=== PATIENT | male | born 1985 | race Caucasian/White ===

== ENCOUNTER 2018-08-22 04:57 | Emergency (ER) | payer MEDICAID, OTHER ==
[2018-08-22 05:21] VITALS: RESP 18; O2SAT 98
[2018-08-22] MEDS ORDERED: Tdap Vaccine 0.5 ml Vial (10-64 yrs) IM ONE (05:29)
[2018-08-22] MEDS ORDERED: Lidocaine 2% w Epi 1:100,000 Inj IJ ONE ×2 (05:45→05:46)
[2018-08-22] MEDS ORDERED: Bacitracin Ointment 30 GM TUBE TOP ONE (06:04)
[2018-08-22] MEDS ORDERED: Tetanus/Diphtheria Toxoids 0.5 ml Syringe IM ONE (06:06)
[2018-08-22] MEDS ORDERED: Bacitracin 500 Units/gm Oint Foilpak UD ONE (06:09)
[2018-08-22 06:15] LABS: BASO % 0.6 % (0.0-2.0); EOS # 0.2 K/uL (0.0-0.7); EOS % 2.7 % (0.0-4.0); HEMOGLOBIN 14.8 g/dL (12.0-18.0); LYMPH # 1.4 K/uL (1.0-4.3); LYMPH % 19.4 % (20.0-40.0); MEAN CELL VOLUME 85.2 fL (80.0-94.0); MEAN CORPUSCULAR HEMOGLOBIN 28.9 pg (27.0-31.0); MEAN CORPUSCULAR HGB CONC 33.9 g/dL (33.0-37.0); MEAN PLATELET VOLUME 8.2 fL (7.2-11.7); MONO # 0.5 K/uL (0.0-0.8); MONO % 6.9 % (0.0-10.0); NEUT # 5.3 K/uL (1.8-7.0); NEUT % 70.4 % (50.0-75.0); NRBC % 0.1 % (0.0-2.0); RBC 5.12 Mil/uL (4.40-5.90); WHITE BLOOD COUNT 7.5 K/uL (4.8-10.8)
--- NOTE | 2018-08-22 06:22 | C.PDOC ---
History Of Present Illness 33 year old male presents to the ER stating he has been drinking tonight and fell, sustaining a laceration to the occipital area. Denies nausea, vomiting, or other injury. Chief Complaint (Nursing): Abnormal Skin Integrity History Per: Patient History/Exam Limitations: no limitations Onset/Duration Of Symptoms: Hrs Current Symptoms Are (Timing): Still Present Location Of Injury: Posterior: Head Quality Of Symptoms: Other (Laceration) Recent travel outside of the [place]: No Past Medical History Reviewed: Historical Data, Nursing Documentation, Vital Signs Vital Signs: Last Vital Signs Temp 98.3 F 08/22/18 05:12 Pulse 74 08/22/18 05:12 Resp 18 08/22/18 05:12 BP 121/76 08/22/18 05:12 Pulse Ox 98 08/22/18 05:12 - Medical History PMH: Denies: Chronic Kidney Disease Family History: States: Unknown Family Hx - Social History Hx Tobacco Use: Yes Hx Alcohol Use: Yes Hx Substance Use: Yes - Immunization History Hx Tetanus Toxoid Vaccination: No (NEEDS) Hx Influenza Vaccination: No Hx Pneumococcal Vaccination: No Review Of Systems Constitutional: Negative for: Fever, Chills Eyes: Negative for: Vision Change Cardiovascular: Negative for: Chest Pain, Palpitations Respiratory: Negative for: Cough, Shortness of Breath Gastrointestinal: Negative for: Nausea, Vomiting Skin: Positive for: Other (Laceration) Physical Exam - Physical Exam Appears: Non-toxic Skin: Normal Color, Warm, Dry Head: Normacephalic, Laceration (3.5cm to occipital scalp) Eye(s): bilateral: Normal Inspection, PERRL, EOMI Oral Mucosa: Moist Neck: Normal, No Midline Cervical Tenderness, No Paracervical Tenderness, Supple Chest: Symmetrical, No Tenderness Cardiovascular: Rhythm Regular Respiratory: Normal Breath Sounds, No Rales, No Rhonchi, No Wheezing Gastrointestinal/Abdominal: Soft, No Tenderness Back: No Vertebral Tenderness, No Paraspinal Tenderness Extremity: Normal ROM (x4) Neurological/Psych: Oriented x3, Normal Speech ED Course And Treatment - Laboratory Results Result Diagrams: 08/22/18 06:03 O2 Sat by Pulse Oximetry: 98 (room air) Pulse Ox Interpretation: Normal Laceration - Laceration Repair Occipital scalp Wound Length (In cm): 3.5 Description Of Wound: Linear Wound Cleansed With: Betadine, Sterile Saline Anesthesia: Lidocaine 2%, With Epi Wound Examination: Irrigated With Saline, No FB With Wound Exploration Wound Closure: Suture (Two) Suture Technique And Material Used: Nylon (4-0) Wound Complexity: Simple Disposition Counseled Patient/Family Regarding: Diagnosis - Disposition Referrals: [facility] [Outside] Disposition: HOME/ ROUTINE Disposition Time: 06:26 Condition: STABLE Instructions: Alcohol Abuse and Alcoholism (DC), Minor Head Injury, Laceration Repair With Stitches (DC), Tetanus Toxoid (Adsorbed) Forms: [employer] (Monegasque) - POA Present On Arrival: None Location Of Wound: occipital area Stage Of Wound: fresh laceration - Clinical Impression Clinical Impression: Laceration, Head injury without skull fracture, Alcohol intoxication
[2018-08-22 06:24] LABS: ALB/GLOB RATIO 1.5 (1.0-2.1); ALBUMIN 4.7 g/dL (3.5-5.0); ALT/SGPT 31 U/L (21-72); AST/SGOT 26 U/L (17-59); BLOOD UREA NITROGEN 14 mg/dL (9-20); CALCIUM 9.1 mg/dl (8.6-10.4); GFR NON-AFRICAN AMERICAN > 60
[2018-08-22 06:38] VITALS: BP 126/71; PULSE 77; TEMP 98.1
--- NOTE | 2018-08-22 09:06 | CT ---
Date of service: 08/22/2018 PROCEDURE: CT HEAD WITHOUT CONTRAST. HISTORY: S/P fall; laceration COMPARISON: None available. TECHNIQUE: Axial computed tomography images were obtained through the head/brain without intravenous contrast. Radiation dose: Total exam DLP = 1271.12 mGy-cm. This CT exam was performed using one or more of the following dose reduction techniques: Automated exposure control, adjustment of the mA and/or kV according to patient size, and/or use of iterative reconstruction technique. FINDINGS: HEMORRHAGE: No intracranial hemorrhage. BRAIN: No mass effect or edema. No atrophy or chronic microvascular ischemic changes. VENTRICLES: Unremarkable. No hydrocephalus. CALVARIUM: Unremarkable. PARANASAL SINUSES: Unremarkable as visualized. No significant inflammatory changes. MASTOID AIR CELLS: Unremarkable as visualized. No inflammatory changes. OTHER FINDINGS: Limited evaluation of the posterior fossa given motion and streak artifact. IMPRESSION: No acute intracranial abnormality. If symptoms persists, consider correlation with MRI. A preliminary report was generated at 5:58 a.m. on 08/22/[address] Mary Daly from [employer].
== END 2018-08-22 06:42 | disposition home or self-care (01) ==
LOC: C.ER 04:57
DX: S01.01XA Laceration without foreign body of scalp, initial encounter (principal); S09.90XA Unspecified injury of head, initial encounter; W19.XXXA Unspecified fall, initial encounter; F10.129 Alcohol abuse with intoxication, unspecified; Z72.0 Tobacco use

== ENCOUNTER 2018-09-02 16:04 | Emergency (ER) | payer MEDICAID ==
[2018-09-02 16:21] VITALS: BP 122/77; PULSE 76; TEMP 98.2; O2SAT 99
--- NOTE | 2018-09-02 17:14 | C.PDOC ---
History Of Present Illness 33 year old male presents to the ED for evaluation of suture removal from the occipital scalp. Patient presents with no further medical complaints. Time Seen by Provider: 09/02/18 16:39 Chief Complaint (Nursing): Suture/Staple Removal History Per: Patient History/Exam Limitations: no limitations Past Medical History Reviewed: Historical Data, Nursing Documentation, Vital Signs Vital Signs: Last Vital Signs Temp 98.2 F 09/02/18 16:19 Pulse 76 09/02/18 16:19 Resp 20 09/02/18 16:19 BP 122/77 09/02/18 16:19 Pulse Ox 99 09/02/18 16:19 - Medical History PMH: Denies: Chronic Kidney Disease Family History: States: Unknown Family Hx - Social History Hx Tobacco Use: Yes Hx Alcohol Use: Yes Hx Substance Use: Yes - Immunization History Hx Tetanus Toxoid Vaccination: No Hx Influenza Vaccination: No Hx Pneumococcal Vaccination: No Review Of Systems Except As Marked, All Systems Reviewed And Found Negative. Constitutional: Positive for: Other (scalp suture removal. ) Physical Exam - Physical Exam Appears: Well, Non-toxic, No Acute Distress Skin: Normal Color, Warm, Dry Head: Atraumatic, Normacephalic, Other (x2 sutures to the occipital scalp. ) Eye(s): bilateral: Normal Inspection Oral Mucosa: Moist Neurological/Psych: Oriented x3, Normal Speech, Normal Cognition ED Course And Treatment O2 Sat by Pulse Oximetry: 99 (RA) Pulse Ox Interpretation: Normal Disposition - Disposition Disposition: HOME/ ROUTINE Disposition Time: 17:11 Condition: STABLE Additional Instructions: RETURN IF WORSENED. Instructions: Stitches Removal Forms: [employer] (Macedonian) - Clinical Impression Clinical Impression: Removal of suture
[2018-09-02 17:21] VITALS: RESP 18
== END 2018-09-02 17:20 | disposition home or self-care (01) ==
LOC: C.ER 16:04
DX: S01.01XD Laceration without foreign body of scalp, subsequent encounter (principal); Z72.0 Tobacco use